=== PATIENT | female | born 1950 | race Caucasian/White ===

== ENCOUNTER 2022-07-06 08:00 | Outpatient (CLI) | payer MEDICARE, OTHER | END 2022-07-06 23:59 | disposition home or self-care (01) | LOC: LAB.N 08:00 | PROVIDERS: ATTEND Physician Assistant Medical | DX: N30.00 Acute cystitis without hematuria (principal) | CPT/HCPCS: 87086; 87181 ==

== ENCOUNTER 2023-03-22 12:43 | Outpatient (CLI) | payer MEDICARE, OTHER ==
--- NOTE | 2023-03-22 15:42 | XRAY Report ---
PROCEDURE: Chest 2 View X-Ray INDICATIONS: COUGH TECHNIQUE: 2 views of the chest were acquired. COMPARISON: None. FINDINGS: Surgical changes and devices: None. Lungs and pleura: No pleural effusions or pneumothorax. Lungs are clear. Mediastinum: Mediastinal contours appear normal. Heart size is normal. Bones and chest wall: No suspicious bony lesions. Overlying soft tissues appear unremarkable. IMPRESSION: No acute cardiopulmonary process. Reviewed by: Luigi Brandon on 03/22/2023 3:41 PM PDT Approved by: Luigi Brandon on 03/22/2023 3:41 PM PDT Station ID: [id number]
== END 2023-03-22 12:44 | disposition home or self-care (01) ==
LOC: DI 12:43
PROVIDERS: ATTEND Family Medicine
DX: R05.9 Cough, unspecified (principal)

== ENCOUNTER 2023-09-06 13:30 | Outpatient (CLI) | payer MEDICARE, OTHER | END 2023-09-06 13:45 | disposition home or self-care (01) | LOC: LAB.N 13:30 | PROVIDERS: ATTEND Nurse Practitioner | DX: N39.0 Urinary tract infection, site not specified (principal) | CPT/HCPCS: 87077; 87086; 87181 ==

== ENCOUNTER 2023-10-22 12:45 | Outpatient (CLI) | payer MEDICARE, OTHER | END 2023-10-22 13:00 | disposition home or self-care (01) | LOC: LAB.N 12:45 | PROVIDERS: ATTEND Nurse Practitioner | DX: N39.0 Urinary tract infection, site not specified (principal) | CPT/HCPCS: 87086; 87181 ==

== ENCOUNTER 2023-11-12 08:00 | Outpatient (CLI) | payer MEDICARE, OTHER | END 2023-11-12 23:59 | disposition home or self-care (01) | LOC: LAB.N 08:00 | PROVIDERS: ATTEND Family Medicine | DX: N39.0 Urinary tract infection, site not specified (principal) | CPT/HCPCS: 87086 ==

== ENCOUNTER 2023-11-29 12:14 | Outpatient (CLI) | payer MEDICARE, OTHER | END 2023-11-29 12:15 | disposition home or self-care (01) | LOC: DI.N 12:14 | PROVIDERS: ATTEND Family Medicine | DX: Z53.9 Procedure and treatment not carried out, unspecified reason (principal) ==

== ENCOUNTER 2023-12-07 12:46 | Outpatient (CLI) | payer MEDICARE, OTHER ==
--- NOTE | 2023-12-07 16:09 | XRAY Report ---
PROCEDURE: Ankle 3+V LT INDICATIONS: LEFT ANKLE PAIN TECHNIQUE: 3 views of the ankle were acquired. COMPARISON: None. FINDINGS: Bones: Acute, mildly displaced, oblique fracture of the distal fibular diaphysis which extends above the syndesmosis. Partially visualized ORIF hardware in the midfoot.. Ankle mortise is normally alig ashkan. No suspicious bony lesions. Soft tissues: No tibiotalar joint effusion. Achilles tendon appears normal. IMPRESSION: Acute, mildly displaced, oblique fracture of the distal fibular diaphysis which extends above the syn desmosis) Stewart C). Reviewed by: Magy Elise MD on 12/07/2023 4:08 PM PDT Approved by: Magy Elise MD on 12/07/2023 4:08 PM PDT Station ID: [id number]
== END 2023-12-07 12:47 | disposition home or self-care (01) ==
LOC: DI 12:46
PROVIDERS: ATTEND Physician Assistant
DX: S82.832A Other fracture of upper and lower end of left fibula, initial encounter for closed fracture (principal)

== ENCOUNTER 2023-12-07 13:27 | Emergency (ER) | payer MEDICARE, OTHER ==
--- NOTE | 2023-12-07 13:55 | ED Physician Documentation ---
PD HPI LOWER EXT INJURY - Stated complaint Stated Complaint: SENT BY DOC - Chief complaint Chief Complaint: Ext Problem - History obtained from History obtained from: Patient - Additional information Additional information: Almost 4 weeks ago now she slipped and hurt her left ankle. She been walking around on it since. She went to the clinic and they ordered x-rays and she was referred over from radiology because she has a fracture. Pain is minimal. PD PAST MEDICAL HISTORY - Present Medications Home Medications: Ambulatory Orders Medication Instructions Recorded Confirmed Knee Scooter 1 unit TD ONCE #1 12/07/23 - Allergies Allergies/Adverse Reactions: Allergies Allergy/AdvReac Type Severity Reaction Status Date / Time erythromycin base AdvReac Unknown Verified 12/07/23 13:45 PD ED PE NORMAL - Vitals Vital signs reviewed: Yes - General General: Alert and oriented X 3, No acute distress - Extremities Extremities: Other (Tender above the lateral malleolus of the left ankle. Normal pedal pulses and sensation. No proximal fibular tenderness.) - Neuro Neuro: Alert and oriented X 3, Normal speech Results - Vitals Vitals: Vital Signs - 24 hr 12/07/23 13:38 Temperature 36.6 C Heart Rate 50 L Respiratory 16 Rate Blood Pressure 112/94 H O2 Saturation 98 Oxygen O2 Source Room air - Rads (name of study) Outpatient x-ray reviewed, spiral fracture of the distal fibula above the mortise line. Relevant Findings:: Final report received, EMP independent interpretation of test Procedures - Splint (location) - Minor LLe Splint applied by: Tech Type of splint: Fiberglass, Short leg, Posterior, Stirrup Other: Patient tolerated well, No complications, Neurovascular intact PD Medical Decision Making - ED course ED course: She did not feel like she would be safe up on crutches given her age and history of MS so she was prescribed a knee scooter and discussed need for orthopedic follow-up. Its minimally displaced despite being walking on it for 4 weeks so she may not need surgical intervention. Departure - Departure Disposition: 01 Home, Self Care Clinical Impression: Closed fracture of left distal fibula Qualifiers: Encounter type: initial encounter Fracture morphology: other fracture Qualified Code(s): S82.832A - Other fracture of upper and lower end of left fibula, initial encounter for closed fracture Condition: Good Record reviewed to determine appropriate education?: Yes Instructions: ED Fx Lower Ext Follow-Up: Orthopedic Care [Provider Group] - Within 1 week Prescriptions: Knee Scooter 1 unit TD ONCE #1 Comments: Follow-up with the orthopedic surgeon as soon as possible, call today for next available appointment. As discussed, as a general rule fractures above the mortise line often needs surgery, that said given that it is minimally displaced and already 4 weeks old almost, they may feel that will heal okay without surgical intervention. Try not to walk on it until you see them.
[2023-12-07 15:40] VITALS: BP 141/57; O2SAT 96
== END 2023-12-07 15:46 | disposition home or self-care (01) ==
LOC: ED 13:27
DX: S82.832A Other fracture of upper and lower end of left fibula, initial encounter for closed fracture (principal); W01.0XXA Fall on same level from slipping, tripping and stumbling without subsequent striking against object, initial encounter; G35 Multiple sclerosis
CPT/HCPCS: 29515; 99284

== ENCOUNTER 2023-12-20 09:18 | Outpatient (CLI) | payer MEDICARE, OTHER ==
[2023-12-20 12:12] LABS: BASOPHILS # (AUTO) 0.1 10^3/uL (0.0-0.1); BASOPHILS % (AUTO) 1.2 %; EOSINOPHILS # (AUTO) 0.3 10^3/uL (0.0-0.7); HCT - HEMATOCRIT 44.9 % (37.0-47.0); HGB - HEMOGLOBIN 14.4 g/dL (12.0-16.0); LYMPHOCYTES # (AUTO) 1.5 10^3/uL (1.5-3.5); LYMPHOCYTES % (AUTO) 26.7 %; MEAN CORPUSCULAR HEMOGLOBIN 28.3 pg (27.0-31.0); MEAN CORPUSCULAR HGB CONC 32.1 g/dL (32.0-36.0); MEAN CORPUSCULAR VOLUME 88.2 fL (81.0-99.0); MEAN PLATELET VOLUME 12.4 fL (7.9-10.8); MONOCYTES # (AUTO) 0.6 10^3/uL (0.0-1.0); MONOCYTES % (AUTO) 11.2 %; NEUTROPHILS # (AUTO) 3.1 10^3/uL (1.5-6.6); NEUTROPHILS % (AUTO) 54.5 %; PLT - PLATELET COUNT 235 10^3/uL (130-450); RED BLOOD COUNT 5.09 10^6/uL (4.20-5.40); RED CELL DISTRIBUTION WIDTH 13.8 % (12.0-15.0); WHITE BLOOD COUNT 5.7 x10^3/uL (4.8-10.8)
[2023-12-20 12:28] LABS: ESTIMATED AVERAGE GLUCOSE 126 mg/dL (70-100)
[2023-12-20 12:31] LABS: THYROID STIMULATING HORMONE 2.59 uIU/mL (0.34-5.60)
[2023-12-20 12:38] LABS: ALBUMIN 4.2 g/dL (3.2-5.5); ALBUMIN/GLOBULIN RATIO 1.3 (1.0-2.2); ALKALINE PHOSPHATASE 104 IU/L (42-121); ALT ALANINE AMINOTRANSFERASE 15 IU/L (10-60); AST ASPARTATE AMINOTRANSFERASE 19 IU/L (10-42); BILIRUBIN,TOTAL 0.5 mg/dL (0.2-1.0); BUN - BLOOD UREA NITROGEN 19 mg/dL (6-20); CALCIUM 10.1 mg/dL (8.5-10.3); CARBON DIOXIDE - CO2 30 mmol/L (21-32); CHLORIDE 104 mmol/L (101-111); CHOL/HDL RATIO 4.9 (<4.4); CHOLESTEROL 245 mg/dL; CREATININE 0.6 mg/dL (0.6-1.3); GFR - MDRD 98 (>89); GLUCOSE 147 mg/dL (74-104); HDL CHOLESTEROL 50 mg/dL; LDL CHOLESTEROL,CALCULATED 159 mg/dL; LDL/HDL RATIO 3.2 (<4.4); POTASSIUM 3.5 mmol/L (3.5-4.5); SODIUM 142 mmol/L (135-145); TOTAL PROTEIN 7.4 g/dL (6.4-8.9); TRIGLYCERIDES 179 mg/dL (48-352); VLDL CHOLESTEROL 36 mg/dL
== END 2023-12-20 09:19 | disposition home or self-care (01) ==
LOC: LAB.N 09:18
PROVIDERS: ATTEND Family Medicine
DX: R03.0 Elevated blood-pressure reading, without diagnosis of hypertension (principal); Z79.52 Long term (current) use of systemic steroids
CPT/HCPCS: 36415; 80053; 80061; 83036; 83721; 84443; 85025

== ENCOUNTER 2023-12-21 10:28 | Outpatient (CLI) | payer MEDICARE, OTHER ==
--- NOTE | 2023-12-29 09:47 | Mammography Report ---
BILATERAL DIGITAL SCREENING MAMMOGRAM 3D/2D: 12/21/2023 CLINICAL: Routine screening. No prior exams were available for comparison. There are scattered areas of fibroglandular density in both breasts (category b / 25%-50% glandular t issue). No significant masses, calcifications, or other findings are seen in either breast. Of note, there is suboptimal positioning in the Left MLO projection secondary to patient factors, how ever, the best possible images were obtained. IMPRESSION: NEGATIVE There is no mammographic evidence of malignancy. A 1 year screening mammogram is recommended. Based on the Tyrer Cuzick model (a risk assessment model) the patient's lifetime risk is 4.4% and her 10 year risk is 3.6%. According to the ACR, ACS, and NCCN guidelines, an annual breast MRI exam vlad g with mammogram is recommended if the patient's lifetime risk is 20% or greater. This exam was interpreted at Station ID: [id number]. NOTE: For mammograms, a report in lay terms will be sent to the patient. Approximately 15% of breast malignancies will not be visualized mammographically. In the management of a palpable breast mass, a negative mammogram must not discourage biopsy of a clinically suspicious lesion. Electronically Signed By: Emily Arteaga M.D., Ph.D. eb/:12/28/2023 09:10:11 letter sent: No_Letter ACR BI-RADS Category 1: Negative 3341F PARENCHYMAL PATTERN: (A) - The breast(s) demonstrate(s) scattered fibroglandular densities. BI-RADS CATEGORY: (1) - 1 RECOMMENDATION: (ANNUAL) - Recommend routine annual screening mammography. [id number] 1 year screening LATERALITY: (B)
== END 2023-12-21 10:29 | disposition home or self-care (01) ==
LOC: DI.N 10:28
DX: Z12.31 Encounter for screening mammogram for malignant neoplasm of breast (principal); R92.323 Mammographic fibroglandular density, bilateral breasts

== ENCOUNTER 2024-02-13 15:15 | Outpatient (CLI) | payer MEDICARE, OTHER | END 2024-02-13 15:30 | disposition home or self-care (01) | LOC: LAB.N 15:15 | PROVIDERS: ATTEND Physician Assistant Medical | DX: R30.0 Dysuria (principal) | CPT/HCPCS: 87086 ==

== ENCOUNTER 2024-02-28 11:49 | Outpatient (CLI) | payer MEDICARE, OTHER | END 2024-02-28 11:50 | disposition home or self-care (01) | LOC: LAB.N 11:49 | PROVIDERS: ATTEND Orthopaedic Surgery Foot and Ankle Surgery | DX: E55.9 Vitamin D deficiency, unspecified (principal) | CPT/HCPCS: 36415; 82306 ==

== ENCOUNTER 2024-03-08 08:00 | Outpatient (CLI) | payer MEDICARE, OTHER | END 2024-03-08 23:59 | disposition home or self-care (01) | LOC: LAB.N 08:00 | PROVIDERS: ATTEND Physician Assistant Medical | DX: R30.0 Dysuria (principal) | CPT/HCPCS: 87086 ==